=== PATIENT | female | born 1995 | race Two or more races ===

== ENCOUNTER 2024-08-23 11:39 | Emergency (ER) | payer MEDICAID, OTHER ==
[~2024-08-23] VITALS: Ht 160 cm; Wt 94.3 kg
[2024-08-23] MEDS: SILVER SULFADIAZINE 1 % TOPICAL CREAM 50GM TOP ONE (12:30)
[2024-08-23 12:33] VITALS: BP 104/68; PULSE 70; RESP 18; TEMP 98.6; O2SAT 99
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
== END 2024-08-23 13:00 | disposition home or self-care (01) ==
LOC: ER 11:52
DX: T23.112A Burn of first degree of left thumb (nail), initial encounter (principal); T23.102A Burn of first degree of left hand, unspecified site, initial encounter; T31.0 Burns involving less than 10% of body surface; X12.XXXA Contact with other hot fluids, initial encounter; Y93.89 Activity, other specified; Y92.89 Other specified places as the place of occurrence of the external cause; Y99.8 Other external cause status
CPT/HCPCS: 16000